=== PATIENT | female | born 1995 | race Caucasian/White ===

== ENCOUNTER 2018-11-16 14:22 | Emergency (ER) | payer BC ==
--- NOTE | 2018-11-16 15:45 | ED ---
Syncope/Near Syncope - HPI Summary HPI Summary: This patient is a 23 year old F presenting to [facility] accompanied by two friends with a chief complaint of two syncopal events this afternoon while on a wine tour. She reports felling dizzy with blurred vision 2 minutes prior to the first event; the second event had no warning. Each episode lasted a few minutes. During the second syncopal event patient reports hitting the back of her head. Reports mild headache. Denies any other injury. - History Of Current Complaint Chief Complaint: EDSyncope Time Seen by Provider: 11/16/18 15:27 Hx Obtained From: Patient Onset/Duration: Sudden Onset, Lasting Minutes Timing: Frequency Of Episodes - 2 Context: Unwitnessed, Loss Of Consciousness Alleviating Factor(s): Spontaneous Resolution Associated Signs And Symptoms: Lightheadedness, Other - blurred vision - Allergies/Home Medications Allergies/Adverse Reactions: Allergies Allergy/AdvReac Type Severity Reaction Status Date / Time No Known Allergies Allergy Verified 11/16/18 14:29 PMH/Surg Hx/FS Hx/Imm Hx Opthamlomology History: Denies: Hx Legally Blind EENT History: Denies: Hx Deafness Infectious Disease History: No Infectious Disease History: Denies: Traveled Outside the [place] in Last 30 Days - Family History Known Family History: Negative: Renal Disease - Social History Alcohol Use: Occasionally Alcohol Amount: was drinking today Substance Use Type: Reports: None Smoking Status (MU): Never Smoked Tobacco Review of Systems Positive: Blurred Vision Musculoskeletal: Negative Positive: Headache, Syncope All Other Systems Reviewed And Are Negative: Yes Physical Exam - Summary Physical Exam Summary: Appearance: The patient is well-nourished in no acute distress and in no acute pain. Skin: The skin is warm and dry and skin color reflects adequate perfusion. HEENT: The head is normocephalic and atraumatic. The pupils are equal and reactive. The conjunctivae are clear and without drainage. Nares are patent and without drainage. Mouth reveals moist mucous membranes and the throat is without erythema and exudate. The external ears are intact. The ear canals are patent and without drainage. The tympanic membranes are intact. Neck: The neck is supple with full range of motion and non-tender. There are no carotid bruits. There is no neck vein distension. Respiratory: Chest is non-tender. Lungs are clear to auscultation and breath sounds are symmetrical and equal. Cardiovascular: Heart is regular rate and rhythm. There is no murmur or rub auscultated. There is no peripheral edema and pulses are symmetrical and equal. Abdomen: The abdomen is soft and non-tender. There are normal bowel sounds heard in all four quadrants and there is no organomegaly palpated. Musculoskeletal: There is no back tenderness noted. Extremities are non-tender with full range of motion. There is good capillary refill. There is no peripheral edema or calf tenderness elicited. Neurological: Patient is alert and oriented to person, place and time. The patient has symmetrical motor strength in all four extremities. Cranial nerves are grossly intact. Deep tendon reflexes are symmetrical and equal in all four extremities. Psychiatric: The patient has an appropriate affect and does not exhibit any anxiety or depression Triage Information Reviewed: Yes Vital Signs On Initial Exam: Initial Vitals Temp Pulse Resp BP Pulse Ox 98.5 F 96 18 127/89 94 11/16/18 14:28 11/16/18 14:28 11/16/18 14:28 11/16/18 14:28 11/16/18 14:28 Vital Signs Reviewed: Yes Diagnostics - Vital Signs Vital Signs Temp Pulse Resp BP Pulse Ox 11/16/18 15:27 100 15 146/74 100 11/16/18 15:23 84 13 100 11/16/18 14:28 98.5 F 96 18 127/89 94 - Laboratory Result Diagrams: 11/16/18 15:54 11/16/18 15:54 Lab Statement: Any lab studies that have been ordered have been reviewed, and results considered in the medical decision making process. - EKG 1504 Cardiac Rate: NL - 91 BPM EKG Rhythm: Sinus Rhythm Summary of EKG Findings: Normal sinus rhythm, normal ST, no ectopy, no STEMI Course/Dx Course Of Treatment: Ms. Fierro presented after fainting twice today. It is unusually hot for spring day today and Gian was on a wine to her. She was nontoxic in appearance with stable vital signs and she arrived. She was kept on a monitor and observed while labs were obtained and were found to be unremarkable. She has a history of fainting spells and this sounds like a vasovagal episode today. She was hydrated here - Diagnoses Provider Diagnoses: Vasovagal episode Discharge - Sign-Out/Discharge Documenting (check all that apply): Patient Departure - discharge Patient Received Moderate/Deep Sedation with Procedure: No - Discharge Plan Condition: Stable Disposition: HOME Patient Education Materials: Head Injury (ED) Referrals: [facility] [place] [facility] REFERRAL [Outside] - 2 Days (Contact the physician referral number to establish a primary physician for follow up care if you do not have one already) Additional Instructions: RETURN TO THE EMERGENCY DEPARTMENT FOR CHANGING OR WORSENING SYMPTOMS. - Billing Disposition and Condition Condition: STABLE Disposition: Home - Attestation Statements Document Initiated by Scribe: Yes Documenting Scribe: Taylor Mejias Provider For Whom Yoelibe is Documenting (Include Credential): Watson Wood MD Scribe Attestation: ITaylor, scribed for Watson Wood MD on 11/16/18 at 2105. Scribe Documentation Reviewed: Yes Provider Attestation: The documentation as recorded by the scribeTaylor accurately reflects the service I personally performed and the decisions made by me, Watson Wood MD Status of Scribe Document: Viewed
[2018-11-16] MEDS ORDERED: NS 0.9% 1000 ML** 1,000 ML IV ONE (15:47)
[2018-11-16 16:05] LABS: ABS Lymphocytes 0.7 10^3/ul (1.0-4.8); ABS Monocytes 0.4 10^3/ul (0-0.8); ABS Neutrophils 6.7 10^3/ul (1.5-7.7); Eosinophil % 0.2 %; Hematocrit 41 % (35-47); Hemoglobin 13.1 g/dL (12.0-16.0); Lymphocyte % 8.8 %; Mean Corpuscular HGB Conc 32 g/dL (31-36); Mean Corpuscular Hemoglobin 26 pg (27-31); Mean Corpuscular Volume 80 fL (80-97); Mean Platelet Volume 9.6 fL (7.4-10.4); Platelet Count 214 10^3/uL (150-450); Red Blood Count 5.12 10^6 /uL (3.70-4.87); Red Cell Distribution Width 15 % (10.5-15); White Blood Count 7.8 10^3/uL (3.5-10.8)
[2018-11-16 16:21] LABS: ALT 14 U/L (7-52); AST 16 U/L (13-39); Albumin/Globulin Ratio 1.8 (1-3); Alkaline Phosphatase 43 U/L (34-104); Anion Gap 7 mmol/L (2-11); BUN/Creatinine Ratio 14.7 (8-20); Blood Urea Nitrogen 10 mg/dL (6-24); CO2 Carbon Dioxide 27 mmol/L (22-32); Calcium 10.2 mg/dL (8.6-10.3); Chloride 103 mmol/L (101-111); EGFR African American 132.2 (>60); EGFR Non-African American 109.2 (>60); Globulin 2.8 g/dL (2-4); Glucose 108 mg/dL (70-100); Potassium 4.7 mmol/L (3.5-5.0); Sodium 137 mmol/L (135-145); Total Protein 7.8 g/dL (6.4-8.9)
[2018-11-16 16:27] LABS: HCG Pregnancy < 0.60 mIU/mL
[2018-11-16 16:41] LABS: Alcohol < 10 mg/dL (<10)
[2018-11-16 16:57] LABS: TSH (Thyroid Stimulating Horm) 6.01 mcIU/mL (0.34-5.60)
[2018-11-16 17:23] VITALS: BP 130/65
[2018-11-16 17:23] LABS: Urine Appearance Clear; Urine Bilirubin Negative (Negative); Urine Blood Negative (Negative); Urine Color Yellow; Urine Glucose Negative (Negative); Urine Ketones Trace (Negative); Urine Nitrite Negative (Negative); Urine Protein Negative (Negative); Urine Specific Gravity 1.009 (1.010-1.030); Urine Urobilinogen Negative (Negative)
== END 2018-11-16 17:23 | disposition home or self-care (01) ==
LOC: ED 14:22
DX: R55 Syncope and collapse (principal)
CPT/HCPCS: 36415; 80053; 80320; 81003; 83605; 83735; 84443; 84484; 84702; 85025; 93005; 96360; 99282; G0480